=== PATIENT | male | born 1975 | race Caucasian/White ===

== ENCOUNTER 2017-07-15 11:07 | Day surgery (SDC) | payer BC ==
--- NOTE | 2017-07-09 23:06 | HP ---
CC: Cristian Cheema MD * ADMITTING HISTORY AND PHYSICAL: DATE OF ADMISSION: 07/15/17 ADMITTING DIAGNOSES: 1. Calculus, left proximal ureter. 2. Calculus, left kidney. 3. Left hydronephrosis. PLANNED PROCEDURE: Shockwave lithotripsy of left ureteral and left renal calculi. SURGEON: Dr. Moran. HISTORY OF PRESENT ILLNESS: Owen Hogan is an 41-year-old gentleman with a history of recurrent bilateral renal calculi. He recently went to the emergency room for left flank pain and was noted to have an approximately 1 cm calculus in the left proximal ureter with an additional 5 mm calculus in the lower pole of the left kidney with left hydronephrosis. The plan is for him to come in on 07/15/17 for shockwave lithotripsy with the understanding that if he starts getting severe flank pain again prior to that, he may require urgent left stent insertion prior to the lithotripsy. PAST MEDICAL HISTORY: Significant for renal calculi and for the history of sarcoidosis in 2005. PAST SURGICAL HISTORY: Significant for right ureteroscopy in 2005 and shockwave lithotripsy on the left side in 2012. MEDICATIONS ON ADMISSION: Percocet p.r.n. ALLERGIES: No known drug allergies. FAMILY HISTORY: There is no family history of kidney stones. REVIEW OF SYSTEMS: He is otherwise in excellent health. There is no history of diabetes mellitus or any other major systemic illness. PHYSICAL EXAMINATION GENERAL: Reveals a pleasant healthy appearing young gentleman, who is in mild discomfort. VITAL SIGNS: Blood pressure is 130/94, pulse 102 per minute, respirations 18 per minute, temperature 97.4, oxygen saturation 98% on room air. LUNGS: Clear bilaterally. CARDIOVASCULAR: Regular rate and rhythm. S1, S2. ABDOMEN: Soft with mild left flank tenderness. IMPRESSION: A 41-year-old gentleman with left proximal ureteral and left renal calculi. PLAN: Plan is for shockwave lithotripsy of ureteral and renal calculi. I have explained to him that if we do not place a stent, he is at risk for obstructing fragments, which may require stent insertion in the future. I have also explained to him that if he has significant pain, vomiting, or fever prior to the scheduled lithotripsy, he may require urgent stent insertion at that time. [id number]/[facility] #: [id number] [facility]
[~2017-07-15 11:07] MED LIST: Buffered Lidocaine 0.9% SYRIN* 5 ML/SYR SYRINGE INTRADERM ONE; DiMENhydriNATE IV* 50 MG/ML VIAL IV PUSH PRN; Famotidine IV* 10 MG/ML 2 ML (20 mg) IV ONE; Morphine INJ* 2 MG/ML 1 ML CARPUJECT IV PRN; Naloxone* 0.4 MG/ML 1 ML VIAL IV PRN; PROCHLORPERAZINE INJ 5 MG/ML 2 ML VIAL IV PRN; Scopolamine 1.5 mg* PATCH TRANSDERM PRN; cefTRIAXone(*) 2 GM in NS 0.9% 50 ML* 50 ML IVPB ONE; fentaNYL* 50 MCG/ML 2 ML VIAL (100 MCG VIAL) IV PRN; oxyCODONE/Acetamin 5/325 MG* TAB PO PRN
[2017-07-15] MEDS ORDERED: Famotidine IV* 10 MG/ML 2 ML (20 mg) ONE (11:10)
[2017-07-15] MEDS ORDERED: fentaNYL* 50 MCG/ML 2 ML VIAL (100 MCG VIAL) ONE (12:15)
[2017-07-15] MEDS ORDERED: Midazolam* 1 MG/ML 5 ML VIAL (5 MG) ONE (12:15)
[2017-07-15] MEDS ORDERED: Lidocaine 2% PF * 5 ML VIAL ONE (12:59)
[2017-07-15] MEDS ORDERED: Furosemide IV* 10 MG/ML 2 ML VIAL (20 MG) ONE (12:59)
[2017-07-15] MEDS ORDERED: Dexamethasone IV* 4 MG/ML 1 ML (4 MG) ONE (13:00)
[2017-07-15] MEDS ORDERED: Ondansetron INJ* 2 MG/ML VIAL ONE (13:00)
[2017-07-15] MEDS ORDERED: Propofol* 10 MG/ML 20 ML BTL IV PUSH ONE (13:00)
--- NOTE | 2017-07-15 13:57 | RAD ---
HISTORY: Shock wave lithotripsy COMPARISONS: July 09, 2017 VIEWS: Frontal views of the abdomen. FINDINGS: BOWEL: There is a nonspecific bowel gas pattern, with nondilated small bowel gas noted. CALCULI: Again noted is a calculus overlying the left psoas muscle measuring 0.7 cm in length, slightly progressed distally compared to the previous examination. There is a stable 0.4 cm calculus of lower pole of left kidney. BONES AND SOFT TISSUES: There are no osseous abnormalities. OTHER FINDINGS: The lung bases are clear. There is no subphrenic gas. IMPRESSION: PERSISTENT LEFT-SIDED NEPHROLITHIASIS. THERE HAS BEEN A SLIGHT INFERIOR PROGRESSION OF THE LEFT URETERAL CALCULUS
[2017-07-15 14:19] VITALS: BP 124/91
--- NOTE | 2017-07-15 15:35 | RAD ---
HISTORY: Status post shockwave lithotripsy COMPARISONS: July 15, 2017 at 11:42 AM VIEWS: Frontal views of the abdomen. FINDINGS: BOWEL: There is a nonobstructive bowel gas pattern. CALCULI: Again noted is a calculus of the left renal parenchymal shadow, and the left hemiabdomen.. BONES AND SOFT TISSUES: There are no osseous abnormalities. OTHER FINDINGS: The lung bases are clear. There is no subphrenic gas. IMPRESSION: LEFT NEPHROLITHIASIS.
--- NOTE | 2017-07-16 03:58 | OP ---
CC: Dr. Cristian Cheema * DATE OF OPERATION: 07/15/17 - [facility] DATE OF : 79 SURGEON: Dr. Moran. ANESTHESIOLOGIST: Dr. Bradley. ANESTHESIA: Intravenous sedation. PRE-OP DIAGNOSES: 1. Calculus, left ureter. 2. Calculus, left kidney. POST-OP DIAGNOSES: 1. Calculus, left ureter. 2. Calculus, left kidney. OPERATIVE PROCEDURE: 1. Shockwave lithotripsy of calculus, left ureter. 2. Shockwave lithotripsy of calculus, left kidney. COMPLICATIONS: None. POSTOPERATIVE CONDITION: Stable. INDICATIONS: Owen Hogan is a 41-year-old gentleman who was evaluated and noted to have an 8 to 9-mm calculus in the left proximal ureter along with an additional 4 to 5 mm calculus in the left kidney. I had advised him to consider left stent insertion and shockwave lithotripsy, but he would like to avoid a stent and would like to have the shockwave lithotripsy understanding that there is a risk that obstructing fragments may require left stent insertion at a later date. DESCRIPTION OF PROCEDURE: After induction of intravenous sedation, the patient was placed on the lithotripsy table in supine position. The dominant calculus in the proximal left ureter was localized using fluoroscopy and shockwave lithotripsy was commenced at a rate of 90 shocks per minute. A total of 2400 shocks were administered to this calculus. Next, using fluoroscopy, the smaller calculus in the left kidney was identified and targeted with shockwaves at 90 shocks per minute for a total of 500 shocks to that calculus. The patient tolerated the procedure satisfactorily and was transferred back to the recovery area in stable condition. [id number]/[facility] #: [id number] [facility]
[2017-07-18] MEDS ORDERED: Scopolamine PATCH Remove* 1 NOTE MISC PATCH OFF ONE (06:08)
== END 2017-07-15 14:19 | disposition home or self-care (01) ==
LOC: OR 11:07
PROVIDERS: ATTEND Urology
DX: N13.2 Hydronephrosis with renal and ureteral calculous obstruction (principal); Z87.442 Personal history of urinary calculi
CPT/HCPCS: 74018; J0696; J1100; J1940; J2250; J2405; J2704; J3010